=== PATIENT | male | born 1980 | race Caucasian/White ===

== ENCOUNTER 2021-11-24 07:36 | Outpatient (CLI) | payer BC | END 2021-11-24 07:37 | disposition home or self-care (01) | LOC: CSHULT 07:36 | PROVIDERS: ATTEND Family Medicine | DX: R10.9 Unspecified abdominal pain (principal); R79.89 Other specified abnormal findings of blood chemistry; K76.0 Fatty (change of) liver, not elsewhere classified | CPT/HCPCS: 76705 ==